=== PATIENT | female | born 1955 | race Caucasian/White ===

== ENCOUNTER 2016-03-09 07:16 | Emergency (ER) | payer BC ==
[2016-03-09 07:26] VITALS: BP 149/78
--- NOTE | 2016-03-09 07:38 | UC ---
Throat Pain/Nasal Robert HPI - HPI Summary HPI Summary: SINUS PAIN AND PRESSURE X 5 DAYS , COLD SX FOR THE PAST 10 DAYS, NO FEVER, NO COUGH, + NASAL CONGESTION , PND - History of Current Complaint Chief Complaint: UCRespiratory Stated Complaint: SINUS COMPLAINT Time Seen by Provider: 03/09/16 07:28 Hx Obtained From: Patient Hx Last Menstrual Period: years ?: No Onset/Duration: Gradual Onset, Lasting Weeks - 10, Still Present Severity: Moderate Cough: None Associated Signs & Symptoms: Positive: Sinus Discomfort, Nasal Discharge. Negative: Fever, Rash - Allergies/Home Medications Allergies/Adverse Reactions: Allergies Allergy/AdvReac Type Severity Reaction Status Date / Time No Known Allergies Allergy Verified 03/09/16 07:26 Home Medications: Home Medications Ibuprofen TAB* [Motrin TAB* 600 MG] 600 mg PO Q6H PRN 03/09/16 [History Confirmed 03/09/16] PMH/Surg Hx/FS Hx/Imm Hx Previously Healthy: Yes - Surgical History Surgical History: None - Family History Known Family History: Negative: Diabetes - Social History Alcohol Use: Occasionally Substance Use Type: None Smoking Status (MU): Never Smoked Tobacco Review of Systems Constitutional: Negative Skin: Negative Eyes: Negative ENT: Nasal Discharge Respiratory: Negative Gastrointestinal: Negative Genitourinary: Negative All Other Systems Reviewed And Are Negative: Yes Physical Exam Triage Information Reviewed: Yes Appearance: Well-Appearing, No Pain Distress, Well-Nourished Vital Signs: Initial Vital Signs Temp 98.7 F 03/09/16 07:20 Pulse 86 03/09/16 07:20 Resp 20 03/09/16 07:20 BP 149/78 03/09/16 07:20 Pulse Ox 100 03/09/16 07:20 Vital Signs Reviewed: Yes Eyes: Positive: Conjunctiva Clear ENT: Positive: Normal ENT inspection, Hearing grossly normal, Pharyngeal erythema, Nasal congestion, Nasal drainage, TMs normal Neck exam: Normal Neck: Positive: Supple, Nontender, No Lymphadenopathy Respiratory: Positive: Chest non-tender, Lungs clear, Normal breath sounds Cardiovascular: Positive: RRR, No Murmur, Pulses Normal Skin Exam: Normal Throat Pain/Nasal Course/Dx - Differential Dx/Diagnosis Provider Diagnoses: SINUSITIS Discharge - Discharge Plan Condition: Stable Disposition: HOME Prescriptions: Azithromycin TAB* [Zithromax TAB (Z-REI) 250 mg #6 tabs] 2 tab PO .TODAY, THEN 1 DAILY #1 rei Patient Education Materials: Sinusitis (ED) Referrals: Milly De La Rosa [Primary Care Provider] - If Needed
== END 2016-03-09 07:40 | disposition home or self-care (01) ==
LOC: UCCORT 07:16
DX: J32.9 Chronic sinusitis, unspecified (principal)
CPT/HCPCS: 99202; G0463